=== PATIENT | female | born 1990 ===

== ENCOUNTER → 2020-09-08 | Outpatient (CLI) | payer OTHER ==
[2020-09-08 15:41] LABS: Source, Urine Clean Catch
[2020-09-08 15:51] LABS: Bacteria Mod /hpf; Mucus Light (0-Heavy); Red Blood Cells, Urine Rare /hpf (0-2); Squamous Epithelial Cells Many /hpf (Few)
== END ==
LOC: LAB EV 15:40 → LAB SHORT 15:40
PROVIDERS: Physician Assistant
DX: S39.012A Strain of muscle, fascia and tendon of lower back, initial encounter (principal)
CPT/HCPCS: 81015; 87086

== ENCOUNTER → 2022-05-24 | Outpatient (CLI) | payer OTHER ==
[2022-05-28 10:49] LABS: CHLAMYDIA TRACHOMATIS, NAA Positive (Negative)
== END | disposition home or self-care (01) ==
LOC: LAB SHORT 14:00 → LAB 14:00
PROVIDERS: Obstetrics & Gynecology
DX: Z34.81 Encounter for supervision of other normal pregnancy, first trimester (principal)
CPT/HCPCS: 87491; 87591

== ENCOUNTER → 2022-06-14 | Outpatient (CLI) | payer OTHER ==
[2022-06-17 04:06] LABS: CHLAMYDIA TRACHOMATIS, NAA Negative (Negative)
== END ==
LOC: LAB SHORT 17:47 → LAB 17:47
PROVIDERS: Obstetrics & Gynecology
DX: Z11.3 Encounter for screening for infections with a predominantly sexual mode of transmission (principal); Z3A.09 9 weeks gestation of pregnancy
CPT/HCPCS: 87491; 87591

== ENCOUNTER → 2022-07-12 | Outpatient (CLI) | payer OTHER | LOC: LAB 14:00 → LAB SHORT 14:00 | DX: N89.8 Other specified noninflammatory disorders of vagina (principal) | CPT/HCPCS: 87070; 87205 ==

== ENCOUNTER 2024-05-09 06:58 | Inpatient (IN) | payer OTHER ==
[2024-05-09] VITALS (13 sets, daily range): BP systolic 119–145; BP diastolic 53–83
[~2024-05-09] VITALS: Ht 175.3 cm; Wt 118.1 kg
[2024-05-09] MEDS ORDERED: Carboprost Tromethamine 250 MCG/ML 1ML Amp IM PRN (07:10)
[2024-05-09] MEDS ORDERED: Calcium Carbonate 500 MG Tab Chew PO SCH (07:10)
[2024-05-09] MEDS ORDERED: Tranexamic Acid 100 ML IV SCH (07:10)
[2024-05-09] MEDS ORDERED: OXYTOCIN/RINGER'S LACTATE 500 ML IV SCH (07:10)
[2024-05-09] MEDS ORDERED: Acetaminophen 500 MG Tab PO PRN (07:10)
[2024-05-09] MEDS ORDERED: ePHEDrine Sulfate 50 MG/ML 1ML Injection XX PRN (07:10)
[2024-05-09] MEDS ORDERED: Misoprostol 200 MCG Tab BC PRN (07:10)
[2024-05-09] MEDS ORDERED: Lactated Ringer's 1,000 ML IV PRN (07:10)
[2024-05-09] MEDS ORDERED: Oxytocin 10 Unit / ML Vial IM PRN (07:10)
[2024-05-09] MEDS ORDERED: FentaNYL 2mcg/ml-Bup 0.1% Epd 250 ML EPI PRN (07:10)
[2024-05-09] MEDS ORDERED: OXYTOCIN/RINGER'S LACTATE 500 ML IV PRN (07:10)
[2024-05-09] MEDS ORDERED: Misoprostol 200 MCG Tab PR PRN (07:10)
[2024-05-09] MEDS ORDERED: FentaNYL Citrate 50 MCG/ML 2 ML Injection IV PRN (07:10)
[2024-05-09] MEDS ORDERED: Lactated Ringer's 1,000 ML IV SCH (07:10)
[2024-05-09] MEDS ORDERED: Methylergonovine Maleate 0.2MG / ML 1ML Amp IM PRN (07:10)
[2024-05-09] MEDS ORDERED: Ondansetron HCl 2 MG / ML 2ML Vial IV PRN (07:10)
[2024-05-09] MEDS ORDERED: PRENATAL TABLE1 EAC2 PO (07:40)
[2024-05-09] MEDS ORDERED: Calcium Carbonate 500 MG Tab Chew PO PRN (08:05)
[2024-05-09 08:13] LABS: BASOPHILS ABSOLUTE AUTO 0.02 K/mm3 (0.00-0.23); BASOPHILS PERCENT AUTO 0 % (0-2); EOSINOPHILS ABSOLUTE AUTO 0.05 K/mm3 (0.00-0.68); EOSINOPHILS PERCENT AUTO 1 % (0-6); Hematocrit 36.4 % (33.0-51.0); Hemoglobin 12.7 g/dL (11.5-16.0); IMMATURE GRAN ABSOLUTE AUTO 0.02 K/mm3 (0.00-0.10); IMMATURE GRAN PERCENT AUTO 0 % (0-1); LYMPHOCYTES ABSOLUTE AUTO 1.67 K/mm3 (0.84-5.20); LYMPHOCYTES PERCENT AUTO 26 % (21-46); MONOCYTES ABSOLUTE AUTO 0.39 K/mm3 (0.16-1.47); MONOCYTES PERCENT AUTO 6 % (4-13); Mean Corpuscular HGB 31.2 pg (26.0-34.0); Mean Corpuscular HGB Conc 34.9 g/dL (31.5-36.5); Mean Corpuscular Volume 89 fL (80-100); Mean Platelet Volume 10.4 fL (9.1-12.4); NEUTROPHILS ABSOLUTE AUTO 4.22 K/mm3 (1.96-9.15); NEUTROPHILS PERCENT AUTO 66 % (41-73); Platelet Count 149 K/mm3 (150-400); RDW Coefficient Variation 12.4 % (11.7-14.2); RDW Standard Deviation 40.4 fL (35.1-46.3); Red Blood Cell Count 4.07 M/mm3 (3.80-5.20); White Blood Cell Count 6.37 K/mm3 (4.00-11.30)
[2024-05-09] MEDS ORDERED: Misoprostol 25 MCG Tab VAG PRN (13:50)
[2024-05-10] VITALS (35 sets, daily range): BP systolic 101–142; BP diastolic 55–81
[2024-05-10] MEDS ORDERED: Ibuprofen 400 MG Tab PO PRN (11:40)
[2024-05-10] MEDS ORDERED: OXYTOCIN/RINGER'S LACTATE 500 ML IV SCH (11:40)
[2024-05-10] MEDS ORDERED: Benzocaine Topical Anesthetic Spray 60GM TOP PRN (11:40)
[2024-05-10] MEDS ORDERED: Witch Hazel/Glycerin PADS TOP PRN (11:40)
[2024-05-10] MEDS ORDERED: Misoprostol 200 MCG Tab PR PRN (11:45)
[2024-05-10] MEDS ORDERED: Acetaminophen 325 MG TABLET PO PRN (11:45)
[2024-05-10] MEDS ORDERED: Methylergonovine Maleate 0.2MG / ML 1ML Amp IM PRN (11:45)
[2024-05-10] MEDS ORDERED: Lactated Ringer's 1,000 ML IV SCH (11:45)
[2024-05-10] MEDS ORDERED: Ketorolac Tromethamine 30mg Vial IV SCH (12:00)
--- NOTE | 2024-05-10 15:45 | NUR ---
UP OOB TO SHOWER AND BRP. VOIDED. JOSE WELL. DENIES PAIN.
[2024-05-11 05:34] VITALS: BP 103/51
[2024-05-11 06:03] LABS: BASOPHILS ABSOLUTE AUTO 0.02 K/mm3 (0.00-0.23); BASOPHILS PERCENT AUTO 0 % (0-2); EOSINOPHILS ABSOLUTE AUTO 0.07 K/mm3 (0.00-0.68); EOSINOPHILS PERCENT AUTO 1 % (0-6); Hematocrit 30.1 % (33.0-51.0); Hemoglobin 10.5 g/dL (11.5-16.0); IMMATURE GRAN ABSOLUTE AUTO 0.03 K/mm3 (0.00-0.10); IMMATURE GRAN PERCENT AUTO 1 % (0-1); LYMPHOCYTES ABSOLUTE AUTO 1.67 K/mm3 (0.84-5.20); LYMPHOCYTES PERCENT AUTO 26 % (21-46); MONOCYTES ABSOLUTE AUTO 0.46 K/mm3 (0.16-1.47); MONOCYTES PERCENT AUTO 7 % (4-13); Mean Corpuscular HGB 31.8 pg (26.0-34.0); Mean Corpuscular HGB Conc 34.9 g/dL (31.5-36.5); Mean Corpuscular Volume 91 fL (80-100); Mean Platelet Volume 10.5 fL (9.1-12.4); NEUTROPHILS PERCENT AUTO 65 % (41-73); Platelet Count 118 K/mm3 (150-400); RDW Coefficient Variation 12.7 % (11.7-14.2); RDW Standard Deviation 41.8 fL (35.1-46.3); White Blood Cell Count 6.35 K/mm3 (4.00-11.30)
[2024-05-11 07:59] VITALS: BP 126/67
--- NOTE | 2024-05-11 08:48 | NUR ---
0800: PT UP AMB IN ROOM. JOSE NB AND SELF CARE WELL. S.O. HELPFUL AND ATTENTIVE. PLAN D/C HOME SOON POSSIBLE PER PT. PT REQUESTS S.L. D/C. REPORTS DISCOMFORT AT SITE AND IT DIDN'T WORK FOR LAB DRAWS THIS MORNING. SL D/C, CATH INTACT, SITE CLEAR. D/C INSTRUCTIONS DISCUSSED AND SIGNED. ASKS APPROPRIATE QUESTIONS. BOTH EXPERIENCED PARENTS WITH OLDER CHILDREN.
[2024-05-11] MEDS ORDERED: Prenatal Vit/FE Fumarate/FA 1 Tab PO SCH (09:00)
[2024-05-11 11:29] VITALS: BP 116/76
--- NOTE | 2024-05-11 12:45 | NUR ---
D/C HOME WITH NB
== END 2024-05-11 12:50 | disposition home or self-care (01) | DRG 807 ==
LOC: OBS 06:58 → BC 06:59 → OBS 07:07 → BC 07:08
PROVIDERS: ADMIT Obstetrics & Gynecology
PROC: 10E0XZZ Delivery of Products of Conception, External Approach (ICD-10-PCS; principal; 2024-05-10)
PROC: 3E0R3BZ Introduction of Anesthetic Agent into Spinal Canal, Percutaneous Approach (ICD-10-PCS; 2024-05-10)
PROC: 00HU33Z Insertion of Infusion Device into Spinal Canal, Percutaneous Approach (ICD-10-PCS; 2024-05-10)
PROC: 0HQ9XZZ Repair Perineum Skin, External Approach (ICD-10-PCS; 2024-05-10)
DX: O24.429 Gestational diabetes mellitus in childbirth, unspecified control (principal); Z37.0 Single live birth; Z3A.39 39 weeks gestation of pregnancy; O70.0 First degree perineal laceration during delivery
CPT/HCPCS: 36415; 36416; 51702; 82947; 85025; 86850; 86900; 86901; 86923; A9270; C1751; J1885; J2210; J2405; J2590; J3010; J7120

== ENCOUNTER → 2024-12-09 | Outpatient (CLI) | payer OTHER ==
[~2024-12-09] MED LIST: PRENATAL TABLE1 EAC2 PO
== END ==
LOC: LAB 15:09 → LAB SHORT 15:09
DX: N39.0 Urinary tract infection, site not specified (principal)
CPT/HCPCS: 87077; 87086; 87186